=== PATIENT | male | born 1960 | race Caucasian/White ===

== ENCOUNTER 2016-07-27 10:53 | Inpatient (IN) | payer BC, OTHER ==
[2016-07-27] MEDS ORDERED: VANCOMYCIN HCL 500 MG PDS 1,000 MG in SODIUM CHLORIDE 0.9% 250 ML 250 ML IV ONE (11:01)
[2016-07-27] MEDS ORDERED: SODIUM CHLORIDE 0.9% 1000ML 1,000 ML IV SCH (11:15)
[2016-07-27] MEDS ORDERED: ALBUTEROL HFA 60 PUFF/INHALER INH PRN (12:46)
[2016-07-27] MEDS ORDERED: ONDANSETRON 4 MG ODT PO PRN (12:46)
[2016-07-27] MEDS ORDERED: NAPROXEN 500 MG TAB PO PRN (12:46)
[2016-07-27] MEDS ORDERED: PHARMACOKINETICS 1 MISC SCH (13:00)
[2016-07-27] MEDS ORDERED: HYDROXYZINE PAMOATE 50 MG CAP PO PRN (14:45)
[2016-07-27] MEDS: METRONIDAZOLE 250 MG TAB PO SCH ×2 (14:53→17:35)
[2016-07-27] MEDS: FERROUS SULFATE 325 MG TAB PO SCH (17:35)
[2016-07-27] MEDS: METFORMIN HYDROCHLORIDE 500 MG TAB PO SCH (17:35)
[2016-07-27] MEDS: ACETAMINOPHEN 500 MG 500 MG TAB PO PRN (18:09)
[2016-07-27] MEDS: TAMSULOSIN HYDROCHLORIDE 0.4 MG CAP PO SCH (20:35)
[2016-07-27] MEDS: ATORVASTATIN 10 MG TAB PO SCH (20:36)
[2016-07-27] MEDS: TRIAMCINOLONE 0.1% TOP SCH (20:36)
[2016-07-27] MEDS: FAMOTIDINE 20 MG TAB PO SCH (20:38)
[2016-07-27] MEDS: PANTOPRAZOLE SODIUM 40 MG ECT PO SCH (20:38)
[2016-07-27] MEDS: BUDESONIDE/FORMOTEROL 160/4.5 AER INH SCH (20:40)
[2016-07-27] MEDS: CHOLECALCIFEROL 1,000 IU TAB PO SCH (20:41)
[2016-07-27] MEDS: LISINOPRIL 20 MG TAB PO SCH (20:42)
[2016-07-27] MEDS: ALPRAZOLAM 0.25 MG TAB PO PRN (20:49)
[2016-07-27] MEDS: [UNRECOGNIZED DRUG - OTHER] PO SCH (20:49)
[2016-07-27 21:28] LABS: CALCIUM 8.5 mg/dl (8.5-10.1); POTASSIUM 5.4 mMol/L (3.5-5.1)
[2016-07-27] MEDS ORDERED: VANCOMYCIN HCL 500 MG PDS 1,000 MG in SODIUM CHLORIDE 0.9% 250 ML 250 ML IV SCH (22:00)
[2016-07-27] MEDS ORDERED: SODIUM CHLORIDE 0.9% 250 ML 250 ML IV ONE (23:29)
[2016-07-27] MEDS ORDERED: VANCOMYCIN HYDROCHLORIDE 500 MG PDS IV ONE (23:29)
[2016-07-27] MEDS: VANCOMYCIN HCL 500 MG PDS 1,000 MG in SODIUM CHLORIDE 0.9% 250 ML 250 ML IV SCH (23:37)
[2016-07-28] MEDS: SODIUM CHLORIDE 0.9% 1000ML 1,000 ML IV SCH ×2 (04:21→20:07)
[2016-07-28] MEDS: PANTOPRAZOLE SODIUM 40 MG ECT PO SCH ×2 (06:56→20:34)
[2016-07-28 07:36] LABS: BASOPHILS % (AUTO) 1 % (0-3); EOSINOPHILS % (AUTO) 6 % (0-9); HEMATOCRIT 35 % (39-53); MEAN CORPUSCULAR HGB CONC 33.1 gm/dl (32.0-36.0); MEAN CORPUSCULAR VOLUME 89 fL (80-100); MONOCYTES % (AUTO) 9.1 % (0-12); NEUTROPHILS % (AUTO) 70.9 % (37-80)
[2016-07-28 07:50] LABS: ALBUMIN 2.6 gm/dl (3.4-5.0); CALCIUM 8.3 mg/dl (8.5-10.1); POTASSIUM 5.3 mMol/L (3.5-5.1)
[2016-07-28] MEDS: METFORMIN HYDROCHLORIDE 500 MG TAB PO SCH ×2 (09:18→20:29)
[2016-07-28] MEDS: TRIAMCINOLONE 0.1% TOP SCH ×2 (09:19→20:37)
[2016-07-28] MEDS: ATENOLOL 25 MG TAB PO SCH (09:20)
[2016-07-28] MEDS: GABAPENTIN 300 MG CAP PO SCH (09:20)
[2016-07-28] MEDS: AMLODIPINE 5 MG TAB PO SCH (09:20)
[2016-07-28] MEDS: CHOLECALCIFEROL 1,000 IU TAB PO SCH ×2 (09:21→20:36)
[2016-07-28] MEDS: ALLOPURINOL 100 MG TAB PO SCH (09:22)
[2016-07-28] MEDS: CETIRIZINE HYDROCHLORIDE 10 MG TAB PO SCH (09:22)
[2016-07-28] MEDS: BUDESONIDE/FORMOTEROL 160/4.5 AER INH SCH ×2 (09:31→20:40)
[2016-07-28] MEDS ORDERED: VANCOMYCIN HYDROCHLORIDE 500 MG PDS IV ONE (11:29)
[2016-07-28] MEDS: VANCOMYCIN HCL 500 MG PDS 1,000 MG in SODIUM CHLORIDE 0.9% 250 ML 250 ML IV SCH (11:34)
[2016-07-28] MEDS: ACETAMINOPHEN 500 MG 500 MG TAB PO PRN ×2 (12:05→20:29)
[2016-07-28] MEDS ORDERED: CODEINE/GUAIFENESIN 5 ML SOL ONE (20:18)
[2016-07-28] MEDS: CODEINE/GUAIFENESIN 5 ML SOL PO PRN (20:30)
[2016-07-28] MEDS: TAMSULOSIN HYDROCHLORIDE 0.4 MG CAP PO SCH (20:31)
[2016-07-28] MEDS: ATORVASTATIN 10 MG TAB PO SCH (20:32)
[2016-07-28] MEDS: FAMOTIDINE 20 MG TAB PO SCH (20:32)
[2016-07-28] MEDS: [UNRECOGNIZED DRUG - OTHER] PO SCH (20:35)
[2016-07-28] MEDS: LISINOPRIL 20 MG TAB PO SCH (20:36)
[2016-07-28] MEDS: ALPRAZOLAM 0.25 MG TAB PO PRN (21:44)
[2016-07-28] MEDS: IBUPROFEN 600 MG TAB PO PRN (21:47)
[2016-07-29] MEDS: VANCOMYCIN HCL 500 MG PDS 1,000 MG in SODIUM CHLORIDE 0.9% 250 ML 250 ML IV SCH ×2 (00:04→12:12)
[2016-07-29] MEDS: SODIUM CHLORIDE 0.9% FLUSH 10 ML SOL IV SCH ×3 (00:04→17:05)
[2016-07-29] MEDS: CODEINE/GUAIFENESIN 5 ML SOL PO PRN ×2 (04:12→23:08)
[2016-07-29] MEDS: PANTOPRAZOLE SODIUM 40 MG ECT PO SCH ×2 (06:54→21:11)
[2016-07-29 08:09] LABS: BASOPHILS % (AUTO) 1 % (0-3); EOSINOPHILS % (AUTO) 5 % (0-9); HEMATOCRIT 39 % (39-53); MEAN CORPUSCULAR HGB CONC 32.7 gm/dl (32.0-36.0); MEAN CORPUSCULAR VOLUME 88 fL (80-100); MONOCYTES % (AUTO) 9.1 % (0-12); NEUTROPHILS % (AUTO) 60.7 % (37-80)
[2016-07-29 08:14] LABS: POTASSIUM 4.5 mMol/L (3.5-5.1)
[2016-07-29] MEDS: METFORMIN HYDROCHLORIDE 500 MG TAB PO SCH ×2 (09:04→17:04)
[2016-07-29] MEDS: TRIAMCINOLONE 0.1% TOP SCH ×2 (09:04→21:09)
[2016-07-29] MEDS: BUDESONIDE/FORMOTEROL 160/4.5 AER INH SCH ×2 (09:05→21:12)
[2016-07-29] MEDS: GABAPENTIN 300 MG CAP PO SCH (09:06)
[2016-07-29] MEDS: AMLODIPINE 5 MG TAB PO SCH (09:07)
[2016-07-29] MEDS: ATENOLOL 25 MG TAB PO SCH (09:08)
[2016-07-29] MEDS: CHOLECALCIFEROL 1,000 IU TAB PO SCH ×2 (09:09→21:13)
[2016-07-29] MEDS: ALLOPURINOL 100 MG TAB PO SCH (09:09)
[2016-07-29] MEDS: CETIRIZINE HYDROCHLORIDE 10 MG TAB PO SCH (09:10)
[2016-07-29] MEDS ORDERED: VANCOMYCIN HYDROCHLORIDE 500 MG PDS IV ONE (12:05)
[2016-07-29] MEDS: DOXYCYCLINE 100 MG TAB PO SCH ×2 (13:20→21:16)
[2016-07-29] MEDS: ACETAMINOPHEN 500 MG 500 MG TAB PO PRN (18:56)
[2016-07-29] MEDS: ALPRAZOLAM 0.25 MG TAB PO PRN (21:07)
[2016-07-29] MEDS: TAMSULOSIN HYDROCHLORIDE 0.4 MG CAP PO SCH (21:09)
[2016-07-29] MEDS: ATORVASTATIN 10 MG TAB PO SCH (21:10)
[2016-07-29] MEDS: FAMOTIDINE 20 MG TAB PO SCH (21:11)
[2016-07-29] MEDS: [UNRECOGNIZED DRUG - OTHER] PO SCH (21:12)
[2016-07-29] MEDS: LISINOPRIL 20 MG TAB PO SCH (21:13)
[2016-07-29] MEDS: IBUPROFEN 600 MG TAB PO PRN (21:16)
[2016-07-30] MEDS: VANCOMYCIN HCL 500 MG PDS 1,000 MG in SODIUM CHLORIDE 0.9% 250 ML 250 ML IV SCH ×2 (00:37→12:34)
[2016-07-30] MEDS: SODIUM CHLORIDE 0.9% FLUSH 10 ML SOL IV SCH ×4 (00:37→16:07)
[2016-07-30] MEDS: PANTOPRAZOLE SODIUM 40 MG ECT PO SCH ×2 (06:46→20:32)
[2016-07-30 07:20] LABS: BASOPHILS % (AUTO) 2 % (0-3); EOSINOPHILS % (AUTO) 7 % (0-9); HEMATOCRIT 34 % (39-53); MEAN CORPUSCULAR HGB CONC 34.6 gm/dl (32.0-36.0); MEAN CORPUSCULAR VOLUME 87 fL (80-100); MONOCYTES % (AUTO) 7.2 % (0-12); NEUTROPHILS % (AUTO) 52.9 % (37-80)
[2016-07-30] MEDS: METFORMIN HYDROCHLORIDE 500 MG TAB PO SCH ×2 (08:53→17:43)
[2016-07-30] MEDS: ALLOPURINOL 100 MG TAB PO SCH (08:53)
[2016-07-30] MEDS: GABAPENTIN 300 MG CAP PO SCH (08:53)
[2016-07-30] MEDS: AMLODIPINE 5 MG TAB PO SCH (08:54)
[2016-07-30] MEDS: CHOLECALCIFEROL 1,000 IU TAB PO SCH ×2 (08:54→20:33)
[2016-07-30] MEDS: BUDESONIDE/FORMOTEROL 160/4.5 AER INH SCH ×2 (08:55→20:40)
[2016-07-30] MEDS: CETIRIZINE HYDROCHLORIDE 10 MG TAB PO SCH (08:55)
[2016-07-30] MEDS: ATENOLOL 25 MG TAB PO SCH (08:55)
[2016-07-30] MEDS: TRIAMCINOLONE 0.1% TOP SCH ×2 (08:59→20:34)
[2016-07-30] MEDS: DOXYCYCLINE 100 MG TAB PO SCH ×2 (09:02→20:31)
[2016-07-30] MEDS: FERROUS SULFATE 325 MG TAB PO SCH (16:07)
[2016-07-30] MEDS: [UNRECOGNIZED DRUG - OTHER] PO SCH (20:30)
[2016-07-30] MEDS: TAMSULOSIN HYDROCHLORIDE 0.4 MG CAP PO SCH (20:31)
[2016-07-30] MEDS: FAMOTIDINE 20 MG TAB PO SCH (20:32)
[2016-07-30] MEDS: ATORVASTATIN 10 MG TAB PO SCH (20:32)
[2016-07-30] MEDS: LISINOPRIL 20 MG TAB PO SCH (20:34)
[2016-07-31 00:29] VITALS: RESP 18
[2016-07-31] MEDS: VANCOMYCIN HCL 500 MG PDS 1,000 MG in SODIUM CHLORIDE 0.9% 250 ML 250 ML IV SCH ×3 (00:30→12:20)
[2016-07-31] MEDS: SODIUM CHLORIDE 0.9% FLUSH 10 ML SOL IV SCH ×2 (00:31→12:06)
[2016-07-31] MEDS: PANTOPRAZOLE SODIUM 40 MG ECT PO SCH (06:36)
[2016-07-31] MEDS: CETIRIZINE HYDROCHLORIDE 10 MG TAB PO SCH (09:52)
[2016-07-31] MEDS: GABAPENTIN 300 MG CAP PO SCH (09:52)
[2016-07-31] MEDS: METFORMIN HYDROCHLORIDE 500 MG TAB PO SCH (09:53)
[2016-07-31] MEDS: ALLOPURINOL 100 MG TAB PO SCH (09:53)
[2016-07-31] MEDS: CHOLECALCIFEROL 1,000 IU TAB PO SCH (09:53)
[2016-07-31] MEDS: ATENOLOL 25 MG TAB PO SCH (09:54)
[2016-07-31] MEDS: AMLODIPINE 5 MG TAB PO SCH (09:54)
[2016-07-31] MEDS: DOXYCYCLINE 100 MG TAB PO SCH (09:54)
[2016-07-31] MEDS: BUDESONIDE/FORMOTEROL 160/4.5 AER INH SCH (09:55)
[2016-07-31] MEDS ORDERED: PNEUMOCOCCAL VACCINE 0.5 ML SOL IM ONE (10:29)
[2016-07-31] MEDS ORDERED: VANCOMYCIN HYDROCHLORIDE 500 MG PDS IV ONE (10:31)
[2016-07-31] MEDS ORDERED: SODIUM CHLORIDE 0.9% 250 ML 250 ML IV ONE (10:31)
[2016-07-31] MEDS: TRIAMCINOLONE 0.1% TOP SCH (10:52)
[2016-07-31 11:57] VITALS: BP 120/68; PULSE 74; TEMP 98.6; O2SAT 93
== END 2016-07-31 12:30 | disposition home or self-care (01) | DRG 383 ==
LOC: ACUTE CARE 11:34
PROVIDERS: ADMIT Family Medicine; ATTEND Family Medicine
DX: L03.116 Cellulitis of left lower limb (principal); E87.5 Hyperkalemia; B95.62 Methicillin resistant Staphylococcus aureus infection as the cause of diseases classified elsewhere; F41.9 Anxiety disorder, unspecified; E11.9 Type 2 diabetes mellitus without complications; B95.7 Other staphylococcus as the cause of diseases classified elsewhere; I10 Essential (primary) hypertension; Z79.84 Long term (current) use of oral hypoglycemic drugs
CPT/HCPCS: 36415; 80048; 80053; 82962; 85025; 87070; 87077; 87186; 90732; 99070; 99231; 99232; J3370; A6232; A6446

== ENCOUNTER 2016-08-01 10:12 | Day surgery (SDC) | payer BC, OTHER ==
[~2016-08-01 10:12] MED LIST: FENTANYL CITRATE 50 MCG/ML SOL ONE; LIDOCAINE HCL 1% MPF SOL ONE; PROPOFOL 500 MG/50 ML EMU IV ONE
[2016-08-01] MEDS ORDERED: LIDOCAINE HCL 1% MPF SOL ONE (11:45)
[2016-08-01 14:04] VITALS: PULSE 70; RESP 16
[2016-08-01 14:55] VITALS: BP 114/69; TEMP 97.8; O2SAT 97
== END 2016-08-01 13:05 | disposition home or self-care (01) ==
LOC: SURG 10:12
PROVIDERS: ATTEND Surgery
DX: L02.416 Cutaneous abscess of left lower limb (principal); B95.62 Methicillin resistant Staphylococcus aureus infection as the cause of diseases classified elsewhere
CPT/HCPCS: 10060; 82962; 87070; 87075; 87077; 87186 ×2; J2001; J2704; J3010; A6402